=== PATIENT | female | born 1995 | race Caucasian/White ===

== ENCOUNTER 2019-02-14 21:14 | Emergency (ER) | payer OTHER ==
[~2019-02-14] VITALS: Ht 160 cm; Wt 56.8 kg
[~2019-02-14 21:14] MED LIST: CONCERTA 18 MG18 MG PO; MELATONIN 3 MG1 TAB PO; ZOLOFT25 MG
[2019-02-14 21:20] VITALS: BP 114/94; Ht 160 cm; Wt 56.8 kg
[2019-02-14] MEDS ORDERED: ZOLOFT100 MG PO ×2 (21:23→21:24)
[2019-02-14] MEDS ORDERED: SPRINTEC 28 DA1 EAC1 PO (21:23)
[2019-02-14] MEDS ORDERED: PROBIOTIC1 EAC1 PO (22:11)
[2019-02-14] MEDS ORDERED: MACROBID100 MG PO (22:11)
[2019-02-14] MEDS ORDERED: PREDNISONE10 MG PO (22:11)
== END 2019-02-14 22:29 | disposition home or self-care (01) ==
LOC: D.ER 21:14
DX: T37.0X5A Adverse effect of sulfonamides, initial encounter (principal); Y92.019 Unspecified place in single-family (private) house as the place of occurrence of the external cause